=== PATIENT | female | born 1980 | race Caucasian/White ===

== ENCOUNTER 2017-04-16 13:26 | Emergency (ER) | payer OTHER ==
[~2017-04-16] VITALS: Ht 165.1 cm; Wt 122.8 kg
[~2017-04-16 13:26] MED LIST: BUSPIRONE HCL15 MG PO; CARAFATE1 GM PO; IBUPROFEN800 MG PO; LAMOTRIGINE200 MG PO; LORATADINE10 M2 PO; NORCO 5/3251 TABLET PO; NYSTATIN15 GM TP; PEPCID20 MG PO; PRENATAL TABLE1 EAC3 PO; SYNTHROID100 MCG PO; SYNTHROID112 MCG PO; TOPAMAX100 MG PO; TYLENOL WITH C1 EACH PO; ZITHROMAX Z-PA250 MG PO; ZOLOFT50 MG PO
[2017-04-16 14:11] VITALS: BP 139/87
== END 2017-04-16 16:50 | disposition left against medical advice (07) ==
LOC: EME 13:26
DX: R20.8 Other disturbances of skin sensation (principal); M25.511 Pain in right shoulder; M54.89 Other dorsalgia; R20.0 Anesthesia of skin; Z53.21 Procedure and treatment not carried out due to patient leaving prior to being seen by health care provider

== ENCOUNTER 2017-07-18 23:35 | Emergency (ER) | payer OTHER ==
[~2017-07-18] VITALS: Ht 165.1 cm; Wt 122.2 kg
[2017-07-19] MEDS ORDERED: FLEXERIL10 MG PO (01:20)
[2017-07-19 01:45] VITALS: BP 119/61
== END 2017-07-19 01:46 | disposition home or self-care (01) ==
LOC: EME 23:35
DX: M79.601 Pain in right arm (principal); J45.909 Unspecified asthma, uncomplicated; E03.9 Hypothyroidism, unspecified; F17.200 Nicotine dependence, unspecified, uncomplicated; Z88.5 Allergy status to narcotic agent; Z88.2 Allergy status to sulfonamides
CPT/HCPCS: 72040; 73060; 99281; 99284; J1885

== ENCOUNTER 2017-07-26 19:51 | Emergency (ER) | payer OTHER ==
[~2017-07-26] VITALS: Ht 165.1 cm; Wt 123.1 kg
[~2017-07-26 19:51] MED LIST changes: +FLEXERIL10 MG PO
[2017-07-26 20:26] LABS: HEMATOCRIT 38.3 % (36.0-46.0); HEMOGLOBIN 13.7 G/DL (11.9-15.5); MCH 30.7 PG (29.0-34.0); MCHC 35.8 G/DL (30.0-36.0); MCV 85.9 FL (83-99); PLATELET COUNT 254 K/uL (156-360); RBC DIS.WIDTH-CV 12.8 % (11.8-14.6); RBC DIS.WIDTH-SD 40.2 % (39-53); RED BLOOD COUNT 4.46 M/uL (3.80-5.20); WHITE BLOOD COUNT 9.3 K/uL (4.1-10.2)
[2017-07-26 20:34] LABS: ALBUMIN 4.1 g/dL (3.2-4.8); CHLORIDE 107 mEq/L (99-109); POTASSIUM 4.1 mEq/L (3.7-5.4); SODIUM 143 mEq/L (136-147)
[2017-07-26 20:37] LABS: GLUCOSE 113 mg/dL (70-99); TOTAL PROTEIN 7.3 g/dL (6.4-8.3)
[2017-07-26 20:39] LABS: TOTAL BILIRUBIN 0.7 mg/dL (0.0-1.0)
[2017-07-26 20:40] LABS: ALKALINE PHOSPHATASE 68 IU/L (3-129); CREATININE 0.8 mg/dL (0.6-1.3); GFR ESTIMATE (CALCULATED) > 59 mL/min/
[2017-07-26 20:41] LABS: UREA NITROGEN (BUN) 19 mg/dL (9-23)
[2017-07-26 20:42] LABS: AST (GOT) 21 IU/L (2-34)
[2017-07-26 20:43] LABS: ALT (GPT) 26 IU/L (3-49)
[2017-07-26 20:51] LABS: QUANTITATIVE HCG < 4.0 MIU/ML
[2017-07-26 22:33] LABS: APPEARANCE SL.HAZY ((CLEAR)); BILIRUBIN NEGATIVE; BLOOD NEGATIVE; COLOR YELLOW ((YELLOW)); GLUCOSE (STRIP) NEGATIVE; KETONES 5; LEUKOCYTES NEGATIVE; NITRITE NEGATIVE; PROTEIN (STRIP) 30; SPECIFIC GRAVITY 1.036 (1.000-1.030)
[2017-07-26 22:40] LABS: BACTERIA NONE SEEN /HPF; EPITHELIAL CELLS RARE /HPF; MUCUS 2+ /LPF; RED BLOOD CELLS 0-5 /HPF (0-5); UCUL ADDED? NO; WHITE BLOOD CELLS 0-5 /HPF (0-5)
[2017-07-27 00:28] VITALS: BP 140/108
== END 2017-07-27 00:28 | disposition home or self-care (01) ==
LOC: EME 19:51
DX: S30.1XXA Contusion of abdominal wall, initial encounter (principal); W50.1XXA Accidental kick by another person, initial encounter; Y93.72 Activity, wrestling; E03.9 Hypothyroidism, unspecified; F41.9 Anxiety disorder, unspecified; F32.9 Major depressive disorder, single episode, unspecified; F42.9 Obsessive-compulsive disorder, unspecified; F31.9 Bipolar disorder, unspecified; F17.200 Nicotine dependence, unspecified, uncomplicated; Z86.73 Personal history of transient ischemic attack (TIA), and cerebral infarction without residual deficits; Z90.49 Acquired absence of other specified parts of digestive tract; Z88.5 Allergy status to narcotic agent; Z88.2 Allergy status to sulfonamides
CPT/HCPCS: 74176; 80053; 81003; 84702; 85027; 99281; 99284